=== PATIENT | female | born 1935 | race Caucasian/White ===

== ENCOUNTER → 2016-11-09 | Outpatient (CLI) | payer BC ==
[~2016-11-09] MED LIST: ADVINUNK INH; ALL180 PO; ASPCH81 PO; CALCTAB5 PO; CRAN1CAP16 PO; CRS10 PO; GEMF600T3 PO; GLUCPOW41 PO; MELO7.5T5 PO; MULT-506 PO; OMEG10007 PO; SOLI10TA2 PO
--- NOTE | 2016-11-09 16:37 | MAMMOGRAPHY REPORT ---
BILATERAL DIGITAL SCREENING MAMMOGRAM WITH CAD: 11/09/2016 CLINICAL HISTORY: Routine screening examination. TECHNIQUE: Bilateral CC, MLO and left cleavage views were obtained. Current study was also evaluate d with a Computer Aided Detection (CAD) system. COMPARISON: Comparison is made to exams dated: 11/06/2015 mammogram, 11/05/2014 mammogram, 11/01/2013 zuri mogram, 11/05/2013 mammogram, 10/25/2012 mammogram, and 10/21/2011 mammogram - [facility] enter. BREAST COMPOSITION: The tissue of both breasts is almost entirely fatty. FINDINGS: There are moderate vascular calcifications and bilateral benign coarse calcifications. A coarse calcification is seen adjacent to a ribbon shaped metallic biopsy marker in the anterior suba reolar left breast, denoting a site of previous benign biopsy. No new suspicious mass, architectura l distortion or cluster of microcalcifications is seen. IMPRESSION: ACR BI-RADS CATEGORY 1: NEGATIVE There is no mammographic evidence of malignancy. A 1 year screening mammogram is recommended. The p atient will receive written notification of the results. Approximately 10% of breast cancers are not detected with mammography. A negative mammographic repor t should not delay biopsy if a clinically suggestive mass is present. Susana Obregon M.D. ay/:11/09/2016 14:47:49 [employer] Member: Rosemarie SEALS)(Chuck), [facility] letter sent: Normal 1/2 BI-RADS Code: ACR BI-RADS Category 1: Negative
== END | disposition home or self-care (01) ==
LOC: C.MAMM 11:45
PROVIDERS: ATTEND Internal Medicine Pulmonary Disease
DX: Z12.31 Encounter for screening mammogram for malignant neoplasm of breast (principal)

== ENCOUNTER → 2017-11-03 | Outpatient (CLI) | payer BC ==
[~2017-11-03] MED LIST changes: -GEMF600T3 PO; +GEMF600T5 PO
--- NOTE | 2017-11-03 14:25 | DIAGNOSTIC IMAGING REPORT ---
L-SPINE MIN 4 VIEWS ROUTINE HISTORY: 82 years-old Female BACK PAIN chronic low back pain with history of arthritis COMPARISON: Lumbar spine MR 09/22/2011 TECHNIQUE: 5 views of the lumbar spine FINDINGS: There is mild levoscoliosis of the lumbar spine which has progressed from prior study. There is multilevel advanced intervertebral disc space narrowing, spondylosis and facet arthropathy which appears to have progressed from comparison MRI. There is 8 mm anterolisthesis L4 on L5, previously measuring 6 mm which is likely secondary to underlying long-standing facet arthropathy. These findings likely result in multilevel bony neuroforaminal narrowing. Metallic suture wires are noted within the soft tissues posterior to the lower lumbar spine and upper sacrum. No acute fracture or subluxation is identified. There is atherosclerosis of the aorta. Indeterminate 4 mm round ossification is noted involving the right midabdomen at the level of L3. There is moderate stool volume throughout the colon. IMPRESSION: 1. No acute fracture or subluxation. 2. Mild levoscoliosis with progressively worsened multilevel advanced intervertebral disc space narrowing, spondylosis and facet arthropathy. 3. Mildly progressive grade 1 anterolisthesis L4 on L5 likely secondary to long-standing facet disease. The above report was generated using voice recognition software. It may contain grammatical, syntax or spelling errors. Electronically signed by: Joon Torres M.D. 11/03/2017 2:24 PM Dictated Date/Time: 11/03/2017 2:21 PM
== END | disposition home or self-care (01) ==
LOC: C.RADBC 13:43
PROVIDERS: ATTEND Family Medicine
DX: M51.06 Intervertebral disc disorders with myelopathy, lumbar region (principal); M54.5 Low back pain; M51.36 Other intervertebral disc degeneration, lumbar region; M47.816 Spondylosis without myelopathy or radiculopathy, lumbar region

== ENCOUNTER → 2017-11-10 | Outpatient (CLI) | payer BC ==
[~2017-11-10] MED LIST changes: +GEMF600T3 PO; -GEMF600T5 PO
--- NOTE | 2017-11-10 14:38 | MAMMOGRAPHY REPORT ---
BILATERAL DIGITAL SCREENING MAMMOGRAM TOMOSYNTHESIS WITH CAD: 11/10/2017 CLINICAL HISTORY: Routine screening. Patient has no complaints. TECHNIQUE: Breast tomosynthesis in addition to standard 2D mammography was performed. Current study was also evaluated with a Computer Aided Detection (CAD) system. COMPARISON: Comparison is made to exams dated: 11/09/2016 mammogram, 11/06/2015 mammogram, 11/05/2014 zuri mogram, 11/05/2013 mammogram, 11/01/2013 mammogram, and 10/25/2012 mammogram - [facility] er. BREAST COMPOSITION: The tissue of both breasts is almost entirely fatty. FINDINGS: No suspicious masses, calcifications, or areas of architectural distortion are noted in ei ther breast. There has been no significant interval change compared to prior exams. Scattered bilater al benign-appearing calcifications are not significantly changed. A biopsy marker clip is again note d within the left medial anterior breast. Left lateral breast asymmetry is stable compared to prior exams including the 2007 exam. IMPRESSION: ACR BI-RADS CATEGORY 2: BENIGN There is no mammographic evidence of malignancy. A 1 year screening mammogram is recommended. The pa tient will receive written notification of the results. Approximately 10% of breast cancers are not detected with mammography. A negative mammographic report should not delay biopsy if a clinically suggestive mass is present. Beatrice Dickerson M.D. /:11/10/2017 10:12:30 [employer] Teacher: Rosemarie SEALS)(Chuck), [facility] letter sent: Normal 1/2 BI-RADS Code: ACR BI-RADS Category 2: Benign
== END | disposition home or self-care (01) ==
LOC: C.MAMM 09:06
PROVIDERS: ATTEND Family Medicine
DX: Z12.31 Encounter for screening mammogram for malignant neoplasm of breast (principal)